=== PATIENT | female | born 2000 | race Caucasian/White ===

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

== ENCOUNTER → 2019-04-05 | Outpatient (REF) | payer OTHER | LOC: M SFHCLERA 13:28 | PROVIDERS: ATTEND Physician Assistant | DX: J02.9 Acute pharyngitis, unspecified (principal) ==

== ENCOUNTER 2020-03-01 18:04 | Emergency (ER) | payer OTHER, SELFPAY ==
[~2020-03-01] VITALS: Ht 167.6 cm; Wt 61.1 kg
[2020-03-01] MEDS ORDERED: PREN1CHW6 PO (18:10)
[2020-03-01 20:02] LABS: BASO % 0.2 % (0.0-1.0); EOS # 0.1 10^3/uL (0.0-0.5); EOS % 0.8 % (0.0-3.0); HEMATOCRIT 39.7 % (36.0-47.0); HEMOGLOBIN 13.2 g/dl (12.0-15.5); LYMPH # 2.2 10^3/uL (1.5-5.0); LYMPH % 22.3 % (24.0-44.0); MEAN CORPUSCULAR HEMOGLOBIN 30.1 pg (27.0-33.0); MEAN CORPUSCULAR HGB CONC 33.2 g/dl (32.0-36.5); MEAN CORPUSCULAR VOLUME 90.4 fl (80.0-96.0); MONO # 0.7 10^3/uL (0.0-0.8); MONO % 6.7 % (0.0-5.0); NEUTROPHILS % 69.7 % (36.0-66.0); PLATELET COUNT, AUTOMATED 196 10^3/uL (150-450); RED BLOOD COUNT 4.39 10^6/uL (4.00-5.40)
--- NOTE | 2020-03-01 20:48 | REPVR ---
PROCEDURE INFORMATION: Exam: US First Trimester, Transabdominal Exam date and time: 03/01/2020 8:30 PM Age: 20 years old Clinical indication: Lmp or gestational age (in weeks): 8; Antepartum complications; Bleeding; ; Additional info: 8wks preg with small amount vag bleeding TECHNIQUE: Imaging protocol: Real-time transabdominal obstetrical ultrasound of the maternal pelvis and a first trimester , less than 14 weeks 0 days, with image documentation. COMPARISON: No relevant prior studies available. FINDINGS: Gestation: Single gestational sac in the uterus. Small perigestational bleed. Yolk sac measures 6 mm. Embryonic/ heart rate: heart rate 173 bpm. Placenta: Unremarkable. No subchorionic bleed. Amniotic fluid: Amniotic fluid is normal for gestational age. BIOMETRY: Gestational age (AUA): Gestational age based on ultrasound measurements is 8 weeks 1 day versus 8 weeks 3 days using LMP of 01/02/2020. SARAH based on ultrasound is a 12/20/2020. Sandstone-Rump length: Single pole demonstrated with a crown-rump length of 1.7 cm. MATERNAL: Uterus: Unremarkable. Cervix: Unremarkable. Right adnexa: Unremarkable. Left adnexa: Unremarkable. Intraperitoneal space: No intraperitoneal free fluid. IMPRESSION: Small perigestational bleed. Otherwise unremarkable 1st trimester scan at 8 weeks 1 day using ultrasound measurements. Electronically signed by: Kevin Gonzalez On 03/01/2020 20:49:08 PM
[2020-03-01 21:00] VITALS: BP 126/74
[2020-03-01 22:07] LABS: CHLAMYDIA DNA AMPLIFICATION NEGATIVE (NEGATIVE); GC DNA AMPLIFICATION NEGATIVE (NEGATIVE)
== END 2020-03-01 21:42 | disposition home or self-care (01) ==
LOC: M ED 18:04
DX: O20.8 Other hemorrhage in early pregnancy (principal); Z3A.08 8 weeks gestation of pregnancy

== ENCOUNTER → 2020-03-09 | Outpatient (REF) | payer OTHER, SELFPAY ==
[~2020-03-09] MED LIST: PREN1CHW6 PO
[2020-03-09 12:50] LABS: HEMOGLOBIN 13.6 g/dl (12.0-15.5); MEAN CORPUSCULAR HEMOGLOBIN 30.4 pg (27.0-33.0); MEAN CORPUSCULAR HGB CONC 33.2 g/dl (32.0-36.5); MEAN CORPUSCULAR VOLUME 91.5 fl (80.0-96.0); PLATELET COUNT, AUTOMATED 178 10^3/uL (150-450); RED BLOOD COUNT 4.48 10^6/uL (4.00-5.40); WHITE BLOOD COUNT 8.4 10^3/uL (4.0-10.0)
[2020-03-09 14:19] LABS: HEPATITIS C VIRUS ABY INDEX 0.1 INDEX (<0.8); HIV 1&2 SCREEN CENTAUR NEGATIVE (NEGATIVE)
== END ==
LOC: M LAB REF 12:14
PROVIDERS: ATTEND Advanced Practice Midwife
DX: Z34.81 Encounter for supervision of other normal pregnancy, first trimester (principal)

== ENCOUNTER → 2020-05-17 | Outpatient (CLI) | payer OTHER ==
--- NOTE | 2020-05-18 20:10 | REP ---
INDICATION: ANATOMY. COMPARISON: Comparison study March 01, 2020.. TECHNIQUE: Transabdominal obstetric sonography. FINDINGS: Scanning through the gravid uterus demonstrates a viable single intrauterine gestation in breech lie. motion is observed and heart rate is recorded at 143 beats per minute. A posterior placenta is seen, grade 1, without evidence of placenta previa. Closed cervical length is measured at 3.8 cm transabdominally. No extrauterine abnormality is observed. Amniotic fluid is subjectively normal. No anomaly is seen. Four-chamber heart and left and right ventricular outflow tract views are less than optimally seen due to position. The following additional anatomic structures are identified felt to be unremarkable: cranium, intracranial contents, nuchal fold face and profile nose and lips, diaphragm, left-sided stomach, abdominal wall cord insertion, right and left kidney, urinary bladder, spine, upper and lower extremity. Three-vessel cord. Superior and inferior placental edge is appear to curved inward. No evidence of abruption or previa.. Biometry chart: BPD 4.2 cm, 18 weeks 5 days Head circumference 16.1 cm, 19 weeks 0 days Abdominal circumference 14.8 cm, 20 weeks 1 day Femur length 2.9 cm, 19 weeks 0 days Humeral length 2.8 cm, 19 weeks 1 day HC AC ratio normal 1.09 Cephalic index normal 0.70 Estimated weight 296 g, 0 lb 10 oz, 52nd percentile for 19 weeks 3 days IMPRESSION: Viable single intrauterine gestation at 19 weeks 1 days by today's composite sonographic criteria. SARAH by today's sonography October 10, 2020. No complication identified. Expected gestational age estimate based on prior sonography is 19 weeks 3 days. SARAH by prior sonography October 08, 2020. Four-chamber heart and outflow tract views less than optimally achieved today. Superior inferior edge of the placenta and appear to curve inward somewhat today. No evidence of placental abruption a or previa. <Electronically signed by Garland Serrato > 05/18/202005
== END ==
LOC: M WHC 14:32
PROVIDERS: ATTEND Advanced Practice Midwife
DX: Z34.82 Encounter for supervision of other normal pregnancy, second trimester (principal); Z3A.19 19 weeks gestation of pregnancy

== ENCOUNTER → 2020-06-26 | Outpatient (CLI) | payer OTHER ==
--- NOTE | 2020-06-26 15:54 | REP ---
INDICATION: F/U ANATOMY. COMPARISON: 05/17/2020. TECHNIQUE: Real-time sonographic evaluation of the gravid uterus performed. FINDINGS: Estimated gestational age is25 weeks 1 day, EDC 10/08/2020. Today's measurements indicate appropriate growth. Presentation: Cephalic Placenta posterior, grade 1, without evidence of placenta previa. heart rate is recorded at 153 beats per minute. Amniotic fluid is subjectively normal. Closed cervical length is measured at 3.9 cm. Biometry chart: BPD: 63 mm, 25 weeks 3 days, 57th percentile. HC: 234 mm, 25 weeks 3 days, 57th percentile AC: 207 mm, 25 weeks 2 days, 54th percentile Femur length: 45 mm, 24 weeks 6 days, 46th percentile HC to AC ratio: 1.13, normal range 1.01-1.20. Estimated weight: 779g, 43rd percentile. anatomy: Cranium: Grossly normal Lateral Ventricles/Choroid Plexus: Grossly normal Posterior Fossa/Cerebellum: Grossly normal Nose/lips/profile: Grossly normal Four chamber heart: Grossly normal Right ventricular outflow tract: Grossly normal Left ventricular outflow tract: Grossly normal Left-sided stomach: Grossly normal Kidneys: Grossly normal Bladder: Grossly normal Cord Insertion: Grossly normal 3 vessel cord: Grossly normal Spine: Grossly normal IMPRESSION: Viable single intrauterine gestation as above. <Electronically signed by Hieu Vaughn > 06/26/20 [id number]
== END ==
LOC: M WHC 11:04
PROVIDERS: ATTEND Obstetrics & Gynecology
DX: Z34.82 Encounter for supervision of other normal pregnancy, second trimester (principal); Z3A.25 25 weeks gestation of pregnancy

== ENCOUNTER → 2020-07-19 | Outpatient (CLI) | payer OTHER ==
[2020-07-19 16:22] LABS: HEMATOCRIT 36.4 % (36.0-47.0); MEAN CORPUSCULAR VOLUME 94.1 fl (80.0-96.0); PLATELET COUNT, AUTOMATED 207 10^3/uL (150-450); RED BLOOD COUNT 3.87 10^6/uL (4.00-5.40); WHITE BLOOD COUNT 9.5 10^3/uL (4.0-10.0)
== END ==
LOC: M WUC 11:35
PROVIDERS: ATTEND Advanced Practice Midwife
DX: Z34.82 Encounter for supervision of other normal pregnancy, second trimester (principal); Z3A.00 Weeks of gestation of pregnancy not specified

== ENCOUNTER → 2020-09-08 | Outpatient (REF) | payer OTHER ==
[~2020-09-08] MED LIST changes: +IBUP80TA PO; +PERCOCET PO
== END ==
LOC: M LAB REF 12:15
PROVIDERS: ATTEND Advanced Practice Midwife
DX: Z34.83 Encounter for supervision of other normal pregnancy, third trimester (principal)

== ENCOUNTER 2020-10-08 12:48 | Inpatient (IN) | payer OTHER ==
[~2020-10-08] VITALS: Ht 167.6 cm; Wt 88.2 kg
[2020-10-08] VITALS (19 sets, daily range): BP systolic 115–154; BP diastolic 55–112
[~2020-10-08 12:48] MED LIST changes: -IBUP80TA PO; -PERCOCET PO
[2020-10-08] MEDS ORDERED: LACTATED RINGER'S 1000 ML IV STA (14:09)
[2020-10-08] MEDS ORDERED: LR 1,000 ML IV SCH ×2 (14:10→19:45)
[2020-10-08 14:35] LABS: HEMATOCRIT 35.9 % (36.0-47.0); HEMOGLOBIN 11.6 g/dl (12.0-15.5); MEAN CORPUSCULAR HEMOGLOBIN 28.4 pg (27.0-33.0); MEAN CORPUSCULAR HGB CONC 32.3 g/dl (32.0-36.5); MEAN CORPUSCULAR VOLUME 87.8 fl (80.0-96.0); PLATELET COUNT, AUTOMATED 253 10^3/uL (150-450); RED BLOOD COUNT 4.09 10^6/uL (4.00-5.40)
--- NOTE | 2020-10-08 16:05 | HPEPDOC ---
Obstetrical History & Physical General Date of Admission Oct 08, 2020 at 13:53 History of Present Illness 20yo G1 at 40w0d presents with c/o ctx. Reports active movement. No vaginal bleeding or LOF. care at [facility]. 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 BREAST: . ABDOMEN: Gravid and non-tender to touch. FETUS: Is vertex (VTX) by sterile vaginal examination (SVE), fetus is vertex (VTX) by Flako. HEART RATE: Regular rate and rhythm. LUNGS: Clear to auscultation (CTA). Vital Signs/I&O Vital Signs Date Time Temp Pulse Resp B/P (MAP) Pulse Ox O2 Delivery O2 Flow Rate FiO2 10/08/20 15:52 98.7 100 15 125/66 (85) Laboratory Data 24H LABS Laboratory Tests 2 10/08/20 13:58: Serology Scanned Report Hepatitis B Testing 10/08/20 14:13: Nucleated Red Blood Cells % (auto) 0.0 CBC/BMP Laboratory Tests 10/08/20 14:13 Pertinent Laboratoy Data Blood Type: O+ RBC Antibody Screen: Negative HIV: Negative Hepatitis B: Negative Hepatitis C: Negative Rapid Plasma Reagin: Nonreactive Rubella: Immune Chlamydia/Gonorrhea: Negative Group B Streptococcus: Negative Anatomy Ultrasound Placenta Location: Posterior Normal Anatomy: Yes Placenta Previa: No Steroid Therapy Steroid Therapy: No Vaginal Examination Dilation: 3 cm Effacement: 90% Station: -1 Cervical Consistency: Soft Cervical Position: Anterior Presentation: Cephalic presentation Assessment Variability: Moderate Accelerations: Positive Tocometer Contractions: Yes Frequency: regular Assessment/Plan Assessment 20-year-old 1 at 40 weeks 0 days in active labor Reassuring status Plan Admit and orient. 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 Group B Streptococcus (GBS) negative. Labs and intravenous (IV) per unit protocol. Counseled on Pitocin and induction of labor (IOL). Anticipate normal spontaneous delivery (). C-S as appropriate. MAURICIO MONTALVO MD. Oct 08, 2020 16:05
[2020-10-08] MEDS ORDERED: FENTANYL 2MCG/ML ROPIVACAINE 0.2% IN 0.9% NACL 100ML IVBAG As Ordered ONE (16:27)
[2020-10-08] MEDS ORDERED: EPIDURAL/PCA KEYS XX PRN (17:00)
[2020-10-08] MEDS ORDERED: ONDANSETRON 4MG/2ML VIAL IV PRN (17:00)
[2020-10-08] MEDS ORDERED: EPIDURAL COMMENT XX SCH (17:00)
[2020-10-08] MEDS ORDERED: REFRIGERATOR IV KEYS XX PRN (17:00)
[2020-10-08] MEDS ORDERED: diphenhydrAMINE 50MG/ML VIAL (J1200) IV PRN (17:00)
[2020-10-08] MEDS ORDERED: NALOXONE INJ 0.4MG/1ML VIAL (J2310 PER 1MG) IV PRN (17:00)
[2020-10-08] MEDS ORDERED: LACTATED RINGER'S 1000 ML IV PRN (17:00)
[2020-10-08] MEDS ORDERED: ePHEDrine SULFATE 25 MG/5 ML(5MG/ML) SYRINGE IV PRN (17:00)
[2020-10-08] MEDS: FENTANYL/ROPIVACAINE/NACL BAG 100 ML EPIDURAL SCH (18:59)
[2020-10-08] MEDS ORDERED: OXYTOCIN DRIP 30 UNITS in IV 1 EA IV SCH (19:45)
[2020-10-09] VITALS (11 sets, daily range): BP systolic 114–154; BP diastolic 56–104
[2020-10-09] MEDS: FENTANYL/ROPIVACAINE/NACL BAG 100 ML EPIDURAL SCH (01:59)
[2020-10-09] MEDS ORDERED: AZITHROMYCIN INJ 500 MG, VIAL MATE ADAPTER 1 EACH in NS 250 ML IV ONE (04:40)
--- NOTE | 2020-10-09 04:42 | IPNPDOC ---
Obstetrical Progress Note Date of Service Oct 09, 2020 Subjective 20yo G1 at 40w1d has been pushing for over 3 hrs. cervix c/c +1. Objective Vital Signs Date Time Temp Pulse Resp B/P (MAP) Pulse Ox O2 Delivery O2 Flow Rate FiO2 10/08/20 21:29 93 136/61 (86) 10/08/20 18:29 97.8 14 Assessment Variability: Moderate Heart Rate Tracing: Category I Tocometer Contractions: Yes Frequency: regular Sterile Vaginal Examination Dilation: complete Effacement (%): 100% Station: +1 Postion/Presentation: Cephalic presentation Assessment and Plan Age: 20 : 1 Status: Reassuring Group B Streptococcus: Negative Anticipate: Section (Patient's been counseled for arrest of descent. I discussed recommendation for section. Reviewed risks as well as discussed alternative to continue pushing for 1 hour and reevaluation. Patient has elected to proceed with section.) MAURICIO MONTALVO MD. Oct 09, 2020 04:42
[2020-10-09] MEDS ORDERED: ceFAZolin SOD 2 GM in IV 1 EA IV ONE (05:00)
[2020-10-09] MEDS ORDERED: BICITRA 30ML SOLN UDC PO ONE (05:00)
[2020-10-09] MEDS ORDERED: ONDANSETRON 4 MG ORAL DISINTEGRATING TAB PO PRN (05:05)
[2020-10-09] MEDS ORDERED: PERCOCET 5MG/325MG TAB PO PRN (05:05)
[2020-10-09] MEDS ORDERED: MOM 30ML SUSPENSION UDC PO PRN (05:05)
[2020-10-09] MEDS ORDERED: OXYTOCIN DRIP 30 UNITS in IV 1 EA IV SCH (05:05)
[2020-10-09] MEDS ORDERED: SIMETHICONE 80MG CHEW TAB PO PRN (05:05)
[2020-10-09] MEDS ORDERED: RHOGAM 300 MCG (1500 IU) INJ (J2790) IM SCH (05:05)
[2020-10-09] MEDS ORDERED: MEASLES,MUMPS,RUBELLA VACCINE INJ (MMR-II) (90707) SC SCH (05:05)
[2020-10-09] MEDS ORDERED: NALBUPHINE HCL 10 MG/ML AMP (J2300) IV PRN (05:12)
[2020-10-09] MEDS ORDERED: ONDANSETRON 4MG/2ML VIAL IV PRN ×2 (05:12→06:30)
[2020-10-09] MEDS ORDERED: diphenhydrAMINE 50MG/ML VIAL (J1200) IV PRN (05:12)
[2020-10-09] MEDS ORDERED: NALOXONE INJ 0.4MG/1ML VIAL (J2310 PER 1MG) IV PRN ×2 (05:12)
[2020-10-09] MEDS ORDERED: METOCLOPRAMIDE INJ 10MG/2ML VIAL (J2765 PER 1) IV PRN (05:12)
[2020-10-09] MEDS ORDERED: PHENYLephrine 500MCG 5ML (100MCG/ML) SYRINGE As Ordered ONE (05:21)
[2020-10-09] MEDS ORDERED: MORPHINE PRES-FREE INJ 10 MG/10 ML VIAL (J2274) As Ordered ONE (05:21)
[2020-10-09] MEDS ORDERED: OXYTOCIN INJ 10 UNITS/ML VIAL (J2590) As Ordered ONE (05:21)
[2020-10-09] MEDS ORDERED: OXYTOCIN 30 UNITS IN 0.9% NaCl 500ML IV BAG (J2590) As Ordered ONE (05:38)
--- NOTE | 2020-10-09 06:09 | ROOPDOC ---
[facility] Report Of Operation Report of Operation DATE OF PROCEDURE: 10/09/20 SURGEON: Odalis Moraes M.D. POSITION CLASSIFIER: None ( essential for tissue retractions, exposure and delivery of ) PROCEDURE: Primary section PREOPERATIVE DIAGNOSIS: 1. Arrest of descent POSTOPERATIVE DIAGNOSIS: 1. Arrest of descent ANESTHESIA: Spinal ESTIMATED BLOOD LOSS: 500 mL URINE OUTPUT: 250 mL INTRAVENOUS FLUIDS: 1000 mL of lactated Ringer's solution PREOPERATIVE ANTIBIOTICS:. 2 g of Ancef and 500 azithromycin OPERATIVE FINDINGS: Liveborn female , Apgars 7 and 9. Weight 9lbs 2oz SPECIMENS: None DESCRIPTION OF PROCEDURE: After informed consent was obtained and written consent was reviewed. The patient was brought to the operating room where spinal anesthesia was placed. She was then placed in the supine position with a left lateral tilt. Jin catheter was placed and to gravity. Patient was then prepped and draped in the normal sterile fashion. A timeout operating room was performed identifying the patient, procedure be performed as well as drug allergies. Anesthesia was tested and deemed to be adequate. Pfannenstiel skin incision was made and this was carried down to the underlying rectus fascia. The fascia was then scored and this incision was extended bilaterally. The fascia was then dissected off the underlying rectus muscle superiorly and inferiorly. The rectus muscles were then in the midline. The peritoneum is then entered. Vesicouterine peritoneum was then tented and excised and a bladder flap was created. Mobius retractor was then placed. Next, a curvilinear incision was then made in the lower uterine segment. The head was brought to the level of the incision atraumatically and delivered along the shoulders and corpus. The cord was clamped x2. The was brought over to the warmer with a good cry. Placenta was drained and delivered grossly intact. The uterus was cleared of all clots and debris and the uterine incision was then closed using 0 Vicryl in a running locking fashion followed by a second layer of 0 Vicryl in a running nonlocking fashion for imbrication. The abdomen suctioned. Surgical sites reinspected and noted be hemostatic. The retractor was then removed. The anterior peritoneum was then reapproximated with 3-0 Vicryl. The rectus muscles were reapproximated 3-0 Vicryl. The fascia was then closed using 0 Vicryl in a running nonlocking fashion. The subcutaneous tissues was then irrigated and suctioned. Subcutaneous tissue was reapproximated using 3-0 Vicryl. Several subdermal stitch is placed using 3-0 Vicryl and the skin was closed with 4-0 Monocryl and subcuticular fashion. This incision was then cleaned and dried and was dressed. The patient was then taken to recovery in stable condition. All counts were correct. The couple has decided to name the . ODALIS MORAES MD. Oct 09, 2020 06:09
[2020-10-09 06:16] LABS: CORD GAS ABE A -11.4; CORD GAS HCO3 A 20.9 MEQ/L; CORD GAS O2 SAT A 29.1 %; CORD GAS PCO2 A 76.5 mmHg; CORD GAS PH A 7.054 UNITS; CORD GAS PO2 A 19.5 mmHg; CORD GAS SBC A 14.3 MEQ/L; CORD GAS TCO2 A 23.2 MEQ/L
[2020-10-09 06:17] LABS: CORD GAS ABE V -10.9; CORD GAS HCO3 V 19.7 MEQ/L; CORD GAS O2 SAT V 49.7 %; CORD GAS PCO2 V 62.8 mmHg; CORD GAS PH V 7.114 UNITS; CORD GAS PO2 V 26.3 mmHg; CORD GAS SBC V 15.1 MEQ/L; CORD GAS TCO2 V 21.6 MEQ/L
[2020-10-09] MEDS ORDERED: oxyCODONE 5MG TAB PO PRN (06:30)
[2020-10-09] MEDS ORDERED: KETOROLAC 30 MG/ML 1ML VIAL IV PRN (06:30)
[2020-10-09] MEDS ORDERED: fentaNYL 100 MCG/2 ML INJECTION (J3010) IV PRN (06:30)
[2020-10-09] MEDS ORDERED: KETOROLAC 30 MG/ML 1ML VIAL As Ordered ONE (06:49)
[2020-10-09] MEDS: PRENATAL VITAMINS CHEWABLE TABLET PO SCH (09:00)
[2020-10-09] MEDS: DOCUSATE SODIUM 100MG CAPSULE PO SCH ×2 (09:00→20:07)
[2020-10-09] MEDS: LR 1,000 ML IV SCH ×2 (10:16→18:25)
[2020-10-09] MEDS: KETOROLAC 30 MG/ML 1ML VIAL IV SCH ×2 (12:48→18:35)
[2020-10-09] MEDS: PERCOCET 5MG/325MG TAB PO PRN (20:54)
[2020-10-10] MEDS: KETOROLAC 30 MG/ML 1ML VIAL IV SCH (00:44)
[2020-10-10 02:22] VITALS: BP 113/53
[2020-10-10 06:09] VITALS: BP 139/63
[2020-10-10 07:47] LABS: HEMATOCRIT 24.9 % (36.0-47.0); MEAN CORPUSCULAR HEMOGLOBIN 28.8 pg (27.0-33.0); MEAN CORPUSCULAR HGB CONC 32.1 g/dl (32.0-36.5); MEAN CORPUSCULAR VOLUME 89.6 fl (80.0-96.0); PLATELET COUNT, AUTOMATED 190 10^3/uL (150-450); RED BLOOD COUNT 2.78 10^6/uL (4.00-5.40); WHITE BLOOD COUNT 16.3 10^3/uL (4.0-10.0)
[2020-10-10] MEDS: IBUPROFEN 800 MG TAB PO SCH ×2 (08:11→16:31)
[2020-10-10] MEDS: PRENATAL VITAMINS CHEWABLE TABLET PO SCH (08:11)
[2020-10-10] MEDS: DOCUSATE SODIUM 100MG CAPSULE PO SCH ×2 (08:11→20:50)
--- NOTE | 2020-10-10 09:48 | IPNPDOC ---
Progress Note Date of Service: Oct 10, 2020 Day#: 1 Progress Note SUBJECT: Luz is a 20-year-old female who had a primary section yesterday for arrest of descent. She pushed for over 3 hours. She reports today she feels tired. She has been out of bed, ambulated to bathroom, voided and has been able to tolerate a regular diet. She is without any issues. OBJECTIVE: VITAL SIGNS: Within normal limits, afebrile. Alert and oriented times three. Resting in bed with sequentials. Respiratory: regular rate without use of accessory muscles. Abdomen: Fundus firm. Dressing intact. No erythema surrounding dressing. Minimal lochia. ASSESSMENT: Day 1 postoperative PLAN: 1. Continue supportive nursing care. 2. Encouraged ambulation and patient to shower. 3. Anticipate discharge to home tomorrow. VS, I&O, 24H, Fishbone Vital Signs/I&O Vital Signs Date Time Temp Pulse Resp B/P (MAP) Pulse Ox O2 Delivery O2 Flow Rate FiO2 10/10/20 06:09 98.2 110 16 139/63 (88) 10/10/20 02:22 97 Room Air I&O- Last 24 Hours up to 6 AM 10/10/20 06:00 Intake Total 4184 ml Output Total 2350 ml Balance 1834 ml Laboratory Data 24H LABS Laboratory Tests 2 10/10/20 06:40: Nucleated Red Blood Cells % (auto) 0.0 CBC/BMP Laboratory Tests 10/10/20 06:40 JEROME ANTONIO CNM Oct 10, 2020 09:48
[2020-10-10 10:00] VITALS: BP 125/69
[2020-10-10] MEDS: PERCOCET 5MG/325MG TAB PO PRN ×5 (10:09→18:35)
[2020-10-10 13:57] VITALS: BP 127/65
[2020-10-10 17:59] VITALS: BP 136/63
[2020-10-10 22:34] VITALS: BP 126/70
[2020-10-11] MEDS: IBUPROFEN 800 MG TAB PO SCH ×2 (00:49→10:00)
[2020-10-11 01:54] VITALS: BP 129/69
[2020-10-11 05:58] VITALS: BP 153/71
[2020-10-11] MEDS ORDERED: IBUP80TA PO (07:24)
[2020-10-11] MEDS ORDERED: PERCOCET PO (07:24)
--- NOTE | 2020-10-11 07:25 | DS.PDOC ---
Discharge Summary General Date of Admission Oct 08, 2020 at 13:53 Date of Discharge 10/11/2020 Primary Care Physician: MAURICIO MONTALVO MD. Discharge Summary PROCEDURES PERFORMED DURING STAY: 1. Epidural 2. Spinal 3. section. ADMITTING DIAGNOSES: 1. Active labor. DISCHARGE DIAGNOSES: 1. Arrest of descent. COMPLICATIONS/CHIEF COMPLAINT: Labor Check. HISTORY OF PRESENT ILLNESS: Luz is a 20-year-old 1 who presented in active labor. She pushed for several hours with no further descent. She underwent a repeat section, productive of live born female infant a Apgars were 7 and 9 weight was 9 lbs. 2 oz. Estimated blood loss 500ml. Patient did well postoperatively by postoperative day #2 had met all discharge criteria is as discharged home in stable condition DISCHARGE MEDICATIONS: Please see below. ALLERGIES: Please see below. PHYSICAL EXAMINATION ON DISCHARGE: VITAL SIGNS: Please see below. GENERAL: No distress HEENT: WNL ABDOMINAL EXAMINATION: Fundus firm. Dressing intact EXTREMITIES: Equal strength and motion SKIN: Intact NEUROLOGICAL EXAMINATION: Grossly intact PSYCHIATRIC EXAMINATION: Appropriate LABORATORY DATA: Please see below. PROGNOSIS: Good ACTIVITY: As tolerated. Pelvic rest. DIET: As tolerated DISCHARGE PLAN: Discharge today. Remove dressing day 5-7 DISPOSITION: Home DISCHARGE INSTRUCTIONS: 1. Pelvic rest. Continue vitamins. Medications as ordered. Call with fever, nausea, vomiting, chills, foul lochia, wound exudate or evidence infection. DISCHARGE CONDITION: Stable Vital Signs/I&Os Vital Signs Date Time Temp Pulse Resp B/P (MAP) Pulse Ox O2 Delivery O2 Flow Rate FiO2 10/11/20 05:58 96.9 89 16 153/71 (98) 10/10/20 17:59 97 Room Air Discharge Medications Scheduled Ibuprofen (Ibuprofen) 800 Mg Tablet, 800 MG PO Q8H Vit37/Iron/Folic Acid (Prenata Chewable Tablet) 1 Each Tab.chew, 1 TAB PO DAILY, (Reported) Scheduled PRN Oxycodone/Acetaminophen (Oxycodone-Acetaminophen 5-325) 1 Each Tablet, 1 TAB PO Q4H PRN for MILD/MODERATE PAIN (PS 1-7) Allergies Coded Allergies: No Known Allergies (Verified Allergy, Unknown, 03/03/20) MAURICIO MONTALVO MD. Oct 11, 2020 07:25
[2020-10-11] MEDS: DOCUSATE SODIUM 100MG CAPSULE PO SCH (09:59)
[2020-10-11] MEDS: PRENATAL VITAMINS CHEWABLE TABLET PO SCH (09:59)
== END 2020-10-11 12:10 | disposition home or self-care (01) | DRG 773 ==
LOC: M LDO 12:48 → M LDI 13:53 → M OBS 10-09 07:59
PROVIDERS: ADMIT Obstetrics & Gynecology; ATTEND Obstetrics & Gynecology
PROC: 10D00Z1 Extraction of Products of Conception, Low, Open Approach (ICD-10-PCS; principal; 2020-10-09 04:55)
DX: O64.0XX0 Obstructed labor due to incomplete rotation of fetal head, not applicable or unspecified (principal); Z3A.40 40 weeks gestation of pregnancy; Z37.0 Single live birth